=== PATIENT | female | born 1995 | race Caucasian/White ===

== ENCOUNTER 2017-10-13 19:37 | Emergency (ER) | payer MEDICAID ==
[~2017-10-13] VITALS: Ht 157.5 cm; Wt 61.0 kg
[2017-10-13 20:32] LABS: MICROSCOPIC AUTO
[2017-10-13 20:33] LABS: CULTURE INDICATED? YES
[2017-10-13 20:35] LABS: BASOPHILS # (AUTO) 0.03 x10^3/uL (0-0.3); BASOPHILS % (AUTO) 0 % (0-1); EOSINOPHILS # (AUTO) 0.12 x10^3/uL (0-0.8); EOSINOPHILS % (AUTO) 1 % (1-7); LYMPHOCYTES # (AUTO) 1.99 x10^3/uL (1-6.1); LYMPHOCYTES % (AUTO) 19 % (22-44); MD NO; MEAN CORPUSCULAR HEMOGLOBIN 34.7 pg (27.0-34.8); MEAN CORPUSCULAR HGB CONC 34.2 g/dL (32.4-35.8); MEAN CORPUSCULAR VOLUME 101.4 fL (80-100); MEAN PLATELET VOLUME 8.3 fL (7.4-10.4); MONOCYTES # (AUTO) 0.55 x10^3/uL (0-1.4); MONOCYTES % (AUTO) 5 % (2-9); NEUTROPHILS # (AUTO) 7.58 x10^3/uL (1.8-8.0); NEUTROPHILS % (AUTO) 74 % (42-75); PLATELET COUNT 343 x10^3/uL (130-400); RED BLOOD COUNT 3.65 x10^6/uL (3.82-5.3); RED CELL DISTRIBUTION WIDTH 12.5 % (9.6-15.2)
[2017-10-13 20:46] LABS: ALANINE AMINOTRANSFERASE 27 U/L (12-78); ALBUMIN 3.5 g/dL (3.4-5.0); ANION GAP 7 mmol/L (5-15); CALCIUM 8.6 mg/dL (8.5-10.1); CHLORIDE 109 mmol/L (98-107); CREATININE 0.77 mg/dL (0.55-1.02)
[2017-10-13 21:03] LABS: ALKALINE PHOSPHATASE 55 U/L (45-117); BILIRUBIN,TOTAL 0.3 mg/dL (0.2-1.0); TOTAL PROTEIN 7.8 g/dL (6.4-8.2)
[2017-10-13] MEDS ORDERED: NITROFURANTOIN (MACROBID) 100 MG CAPSULE PO ONE (21:30)
[2017-10-13] MEDS ORDERED: NITROFURANTOIN (MACROBID) 100 MG CAPSULE ONE (21:33)
[2017-10-13 22:50] VITALS: BP 114/71
== END 2017-10-13 23:30 | disposition home or self-care (01) ==
LOC: ED 23:24
DX: O23.40 Unspecified infection of urinary tract in pregnancy, unspecified trimester (principal); Z87.891 Personal history of nicotine dependence
CPT/HCPCS: 36415; 76815; 80053; 81001; 84702; 85025; 87086; 99285

== ENCOUNTER 2018-02-06 18:49 | Emergency (ER) | payer MEDICAID ==
[~2018-02-06] VITALS: Ht 154.9 cm; Wt 68.0 kg
[2018-02-06 18:59] VITALS: BP 106/62
[2018-02-06 19:32] LABS: BASOPHILS # (AUTO) 0.03 x10^3/uL (0-0.1); BASOPHILS % (AUTO) 0 % (0-1); EOSINOPHILS # (AUTO) 0.09 x10^3/uL (0-0.4); EOSINOPHILS % (AUTO) 1 % (1-7); LYMPHOCYTES # (AUTO) 2.13 x10^3/uL (1-3.4); LYMPHOCYTES % (AUTO) 17 % (22-44); MD NO; MEAN CORPUSCULAR HEMOGLOBIN 34.1 pg (27.0-34.8); MEAN CORPUSCULAR HGB CONC 33.5 g/dL (32.4-35.8); MEAN PLATELET VOLUME 8.2 fL (7.4-10.4); MONOCYTES # (AUTO) 0.58 x10^3/uL (0.2-0.8); MONOCYTES % (AUTO) 5 % (2-9); NEUTROPHILS # (AUTO) 10.01 x10^3/uL (1.8-6.8); NEUTROPHILS % (AUTO) 78 % (42-75); PLATELET COUNT 374 x10^3/uL (130-400); RED BLOOD COUNT 3.55 x10^6/uL (3.82-5.3); RED CELL DISTRIBUTION WIDTH 12.8 % (9.6-15.2)
[2018-02-06 19:43] LABS: ALANINE AMINOTRANSFERASE 62 U/L (12-78); ANION GAP 7 mmol/L (5-15); CALCIUM 8.5 mg/dL (8.5-10.1); CHLORIDE 107 mmol/L (98-107)
[2018-02-06 19:45] LABS: ALKALINE PHOSPHATASE 67 U/L (45-117); BILIRUBIN,TOTAL 0.2 mg/dL (0.2-1.0); TOTAL PROTEIN 7.5 g/dL (6.4-8.2)
[2018-02-06 19:53] LABS: MICROSCOPIC AUTO
[2018-02-06 19:54] LABS: CULTURE INDICATED? YES
== END 2018-02-06 21:48 | disposition home or self-care (01) ==
LOC: ED 21:22
DX: O23.12 Infections of bladder in pregnancy, second trimester (principal); Z3A.26 26 weeks gestation of pregnancy
CPT/HCPCS: 36415; 76815; 80053; 81001; 85025; 87086; 99284

== ENCOUNTER 2018-05-24 19:36 | Outpatient (CLI) | payer MEDICAID ==
[~2018-05-24] VITALS: Ht 154.9 cm; Wt 68.0 kg
[2018-05-24 20:38] VITALS: BP 115/75
[2018-05-24 20:44] LABS: AMPHETAMINE SCREEN, URINE Negative (Negative); BARBITURATE SCREEN, URINE Negative (Negative); BENZODIAZEPINE SCREEN, URINE Negative (Negative); CANNABINOID SCREEN, URINE Negative (Negative); METHADONE SCREEN, URINE Negative (Negative); OPIATE SCREEN, URINE Negative (Negative)
[2018-05-24 20:46] LABS: COCAINE SCREEN, URINE Negative (Negative)
[2018-05-24 20:52] LABS: MEAN CORPUSCULAR HEMOGLOBIN 34.7 pg (27.0-34.8); MEAN CORPUSCULAR VOLUME 102.3 fL (80-100); MEAN PLATELET VOLUME 8.5 fL (7.4-10.4); PLATELET COUNT 337 x10^3/uL (130-400); RED BLOOD COUNT 3.73 x10^6/uL (3.82-5.3); RED CELL DISTRIBUTION WIDTH 13.4 % (9.6-15.2)
[2018-05-24 21:01] LABS: MICROSCOPIC INDICATED
[2018-05-25] MEDS ORDERED: VALA500T4 PO (21:26)
[2018-05-28] MEDS ORDERED: IBUP-1222 PO (14:08)
[2018-05-28] MEDS ORDERED: LEVE500T53 PO (14:10)
== END 2018-05-24 21:14 | disposition home or self-care (01) ==
LOC: LDOP 19:36
PROVIDERS: ATTEND Obstetrics & Gynecology
DX: O26.893 Other specified pregnancy related conditions, third trimester (principal); Z3A.38 38 weeks gestation of pregnancy
CPT/HCPCS: 36415; 59025; 80307; 81001; 85027; 86592; 86762; 86850; 86900; 87081; 87340; 87806; 99201; G0463; G0475

== ENCOUNTER 2018-05-25 18:14 | Outpatient (CLI) | payer MEDICAID ==
[2018-05-25 20:43] LABS: MICROSCOPIC INDICATED
[2018-05-25 20:50] LABS: AMPHETAMINE SCREEN, URINE Negative (Negative); BARBITURATE SCREEN, URINE Negative (Negative); BENZODIAZEPINE SCREEN, URINE Negative (Negative); CANNABINOID SCREEN, URINE Negative (Negative); COCAINE SCREEN, URINE Negative (Negative); METHADONE SCREEN, URINE Negative (Negative); OPIATE SCREEN, URINE Negative (Negative)
[2018-05-25 20:52] LABS: CULTURE INDICATED? NO
[2018-05-25] MEDS ORDERED: VALA500T4 PO (21:26)
[2018-05-28] MEDS ORDERED: IBUP-1222 PO (14:08)
[2018-05-28] MEDS ORDERED: LEVE500T53 PO (14:10)
== END 2018-05-25 21:46 | disposition home or self-care (01) ==
LOC: LDOP 18:14
PROVIDERS: ATTEND Obstetrics & Gynecology Gynecology
DX: O26.893 Other specified pregnancy related conditions, third trimester (principal); O98.313 Other infections with a predominantly sexual mode of transmission complicating pregnancy, third trimester; O09.33 Supervision of pregnancy with insufficient antenatal care, third trimester; O14.93 Unspecified pre-eclampsia, third trimester; G40.909 Epilepsy, unspecified, not intractable, without status epilepticus; E86.9 Volume depletion, unspecified; N93.9 Abnormal uterine and vaginal bleeding, unspecified; Z3A.34 34 weeks gestation of pregnancy
CPT/HCPCS: 59025; 76805; 80307; 81001; 89060; 99211; G0463; Q0114

== ENCOUNTER 2019-05-31 10:23 | Emergency (ER) | payer SELFPAY ==
[~2019-05-31] VITALS: Ht 157.5 cm; Wt 52.0 kg
[~2019-05-31 10:23] MED LIST: IBUP-1222 PO; LEVE500T53 PO; VALA500T4 PO
[2019-05-31 10:51] LABS: MEAN CORPUSCULAR HEMOGLOBIN 33.5 pg (27.0-34.8); MEAN CORPUSCULAR HGB CONC 33.4 g/dL (32.4-35.8); MEAN CORPUSCULAR VOLUME 100.4 fL (80-100); MEAN PLATELET VOLUME 8.5 fL (7.4-10.4); PLATELET COUNT 369 x10^3/uL (130-400); RED CELL DISTRIBUTION WIDTH 12.2 % (9.6-15.2)
[2019-05-31] MEDS ORDERED: ONDANSETRON ODT 4 MG PO ONE (11:00)
[2019-05-31] MEDS ORDERED: ACETAMINOPHEN 500 MG TABLET PO ONE (11:00)
[2019-05-31 11:05] LABS: ALBUMIN 3.4 g/dL (3.4-5.0); ANION GAP 6 mmol/L (5-15); CALCIUM 8.5 mg/dL (8.5-10.1); CHLORIDE 105 mmol/L (98-107); CREATININE 0.71 mg/dL (0.55-1.02); MD YES
[2019-05-31 11:06] LABS: LYMPH#(MANUAL) 0.76 x10^3/uL (1-3.4); LYMPHS% (MANUAL) 3 % (22-44); MONOS% (MANUAL) 2 % (2-9); SEG#(MANUAL) 23.94 x10^3/uL (1.8-6.8); SEGS% (MANUAL) 95 % (42-75)
[2019-05-31 11:07] LABS: <PLATELET ESTIMATE> ADEQUATE; <PLT MORPHOLOGY> NORMAL PLT MORPH
[2019-05-31] MEDS ORDERED: ACETAMINOPHEN 500 MG TABLET ONE (13:48)
[2019-05-31] MEDS ORDERED: ONDANSETRON ODT 4 MG ONE (13:48)
--- NOTE | 2019-05-31 13:56 | NUR ---
PT MEDICATED PER EMAR.
[2019-05-31 13:59] LABS: MICROSCOPIC AUTO
[2019-05-31 14:10] LABS: CULTURE INDICATED? YES
--- NOTE | 2019-05-31 14:37 | NUR ---
REPORT RECEIVED FROM ALAN NIETO. ASSUMED CARE OF PT. PT CURRENTLY RESTING ON GURNEY, DOZING ON SIDE. AWAKENS EASILY TO NAME BEING CALLED. PT AWARE WE ARE WAITING FOR IMAGING. PT ON CONT BP, CARDIAC AND O2 MONITORS. CALL LIGHT WITHIN REACH. WILL CONT TO MONITOR PT.
[2019-05-31 16:13] VITALS: BP 104/52
== END 2019-05-31 16:15 | disposition home or self-care (01) ==
LOC: ED 11:23
DX: O99.511 Diseases of the respiratory system complicating pregnancy, first trimester (principal); J02.0 Streptococcal pharyngitis; Z3A.01 Less than 8 weeks gestation of pregnancy
CPT/HCPCS: 36415; 76815; 80048; 81001; 82040; 84702; 84703; 85025; 87086; 87880; 99284; Q0162

== ENCOUNTER 2019-06-03 04:57 | Emergency (ER) | payer SELFPAY ==
[~2019-06-03] VITALS: Ht 154.9 cm; Wt 67.4 kg
[2019-06-03] MEDS ORDERED: ONDANSETRON ODT 4 MG ONE (05:47)
[2019-06-03] MEDS ORDERED: ACETAMINOPHEN 325 MG TABLET ONE (05:47)
[2019-06-03] MEDS ORDERED: ACETAMINOPHEN 325 MG TABLET PO ONE (06:00)
[2019-06-03] MEDS ORDERED: ONDANSETRON ODT 4 MG PO ONE (06:00)
--- NOTE | 2019-06-03 06:18 | NUR ---
Patient into room with urine sample. Patient reports having a sore throat but was unable to afford medications. Midlevel provider to bedside for assessment. Orders placed for analgesic and antinausea medications. RN returned with medications as provider assessed patient. RN collected urine sample and tubed to lab. RN provided patient with additional blanket and patient asked RN to dim the lights. Lights were dimmed. Patient then used the bathroom and returned. On return patient was provided with additional blankets. Still waiting for urinalysis and phlebotomy results.
[2019-06-03 06:22] LABS: CULTURE INDICATED? YES; MICROSCOPIC INDICATED
[2019-06-03 06:24] LABS: BASOPHILS # (AUTO) 0.02 x10^3/uL (0-0.1); BASOPHILS % (AUTO) 0 % (0-1); EOSINOPHILS # (AUTO) 0.12 x10^3/uL (0-0.4); EOSINOPHILS % (AUTO) 1 % (1-7); LYMPHOCYTES # (AUTO) 1.58 x10^3/uL (1-3.4); LYMPHOCYTES % (AUTO) 18 % (22-44); MD NO; MEAN CORPUSCULAR HEMOGLOBIN 33.2 pg (27.0-34.8); MEAN CORPUSCULAR HGB CONC 32.9 g/dL (32.4-35.8); MEAN CORPUSCULAR VOLUME 100.8 fL (80-100); MEAN PLATELET VOLUME 8.5 fL (7.4-10.4); MONOCYTES # (AUTO) 0.64 x10^3/uL (0.2-0.8); MONOCYTES % (AUTO) 7 % (2-9); NEUTROPHILS # (AUTO) 6.41 x10^3/uL (1.8-6.8); NEUTROPHILS % (AUTO) 73 % (42-75); PLATELET COUNT 346 x10^3/uL (130-400); RED BLOOD COUNT 3.47 x10^6/uL (3.82-5.3); RED CELL DISTRIBUTION WIDTH 11.9 % (9.6-15.2)
[2019-06-03 06:25] LABS: ALANINE AMINOTRANSFERASE 25 U/L (12-78); ALBUMIN 2.7 g/dL (3.4-5.0); ANION GAP 7 mmol/L (5-15); CALCIUM 8.3 mg/dL (8.5-10.1); CHLORIDE 108 mmol/L (98-107); CREATININE 0.58 mg/dL (0.55-1.02)
[2019-06-03 06:43] LABS: ALKALINE PHOSPHATASE 66 U/L (45-117); BILIRUBIN,TOTAL 0.3 mg/dL (0.2-1.0); TOTAL PROTEIN 7.1 g/dL (6.4-8.2)
[2019-06-03 08:03] VITALS: BP 94/61
== END 2019-06-03 08:05 | disposition home or self-care (01) ==
LOC: ED 05:35
DX: N30.00 Acute cystitis without hematuria (principal); J02.0 Streptococcal pharyngitis
CPT/HCPCS: 36415; 80053; 81001; 83690; 84702; 85025; 87086; 99283; Q0162

== ENCOUNTER 2019-10-21 12:32 | Outpatient (CLI) | payer MEDICAID ==
[~2019-10-21] VITALS: Ht 157.5 cm; Wt 54.5 kg
[2019-10-21 12:52] VITALS: BP 93/60
[2019-10-21 13:49] LABS: BASOPHILS # (AUTO) 0.02 x10^3/uL (0-0.1); BASOPHILS % (AUTO) 0 % (0-1); EOSINOPHILS # (AUTO) 0.14 x10^3/uL (0-0.4); EOSINOPHILS % (AUTO) 1 % (1-7); LYMPHOCYTES # (AUTO) 2.41 x10^3/uL (1-3.4); LYMPHOCYTES % (AUTO) 24 % (22-44); MD NO; MEAN CORPUSCULAR HEMOGLOBIN 33.6 pg (27.0-34.8); MEAN CORPUSCULAR HGB CONC 33.1 g/dL (32.4-35.8); MEAN CORPUSCULAR VOLUME 101.5 fL (80-100); MEAN PLATELET VOLUME 7.7 fL (7.4-10.4); MONOCYTES # (AUTO) 0.46 x10^3/uL (0.2-0.8); MONOCYTES % (AUTO) 5 % (2-9); NEUTROPHILS # (AUTO) 6.84 x10^3/uL (1.8-6.8); NEUTROPHILS % (AUTO) 69 % (42-75); PLATELET COUNT 385 x10^3/uL (130-400); RED BLOOD COUNT 3.42 x10^6/uL (3.82-5.3); RED CELL DISTRIBUTION WIDTH 14.1 % (9.6-15.2)
[2019-10-21 14:18] LABS: AMPHETAMINE SCREEN, URINE Negative (Negative); BENZODIAZEPINE SCREEN, URINE Negative (Negative); CANNABINOID SCREEN, URINE Negative (Negative); COCAINE SCREEN, URINE Negative (Negative); OPIATE SCREEN, URINE Negative (Negative)
[2019-10-21] MEDS ORDERED: VALACYCLOVIR 500MG TABLET ONE (14:28)
[2019-10-21 14:31] LABS: CLUE CELLS PRESENT (NONE SEEN); WET PREP WBCS MODERATE (FEW)
[2019-10-21 14:35] LABS: MICROSCOPIC NOT IND
[2019-10-21 14:36] LABS: BARBITURATE SCREEN, URINE Negative (Negative); METHADONE SCREEN, URINE Negative (Negative)
[2019-10-21] MEDS ORDERED: metroNIDAZOLE 500 MG TABLET PO ONE (17:30)
[2019-10-21] MEDS ORDERED: VALACYCLOVIR 500MG TABLET PO SCH (21:00)
== END 2019-10-21 18:47 | disposition home or self-care (01) ==
LOC: LDOP 12:32
PROVIDERS: ATTEND Obstetrics & Gynecology
DX: O32.1XX0 Maternal care for breech presentation, not applicable or unspecified (principal); O42.912 Preterm premature rupture of membranes, unspecified as to length of time between rupture and onset of labor, second trimester; O26.892 Other specified pregnancy related conditions, second trimester; N76.0 Acute vaginitis; Z3A.25 25 weeks gestation of pregnancy
CPT/HCPCS: 36415; 76805; 80307; 81003; 84112; 85025; 86592; 86762; 86850; 86900; 87081; 87210; 87340; 87491; 87591; 87806; 87808; 99201; 99211; G0463; G0475

== ENCOUNTER 2019-11-04 19:46 | Outpatient (CLI) | payer MEDICAID ==
[~2019-11-04] VITALS: Ht 157.5 cm; Wt 72.8 kg
[2019-11-04 19:58] VITALS: BP 99/54
[2019-11-04 20:53] LABS: AMPHETAMINE SCREEN, URINE Negative (Negative); BARBITURATE SCREEN, URINE Negative (Negative); BENZODIAZEPINE SCREEN, URINE Negative (Negative); CANNABINOID SCREEN, URINE Negative (Negative); COCAINE SCREEN, URINE Negative (Negative); METHADONE SCREEN, URINE Negative (Negative); OPIATE SCREEN, URINE Negative (Negative)
== END 2019-11-04 20:55 | disposition home or self-care (01) ==
LOC: LDOP 19:46
PROVIDERS: ATTEND Obstetrics & Gynecology
DX: O26.893 Other specified pregnancy related conditions, third trimester (principal); R10.9 Unspecified abdominal pain; Z3A.28 28 weeks gestation of pregnancy
CPT/HCPCS: 80307; 99211; G0463

== ENCOUNTER 2020-11-02 13:47 | Emergency (ER) | payer MEDICAID ==
[~2020-11-02] VITALS: Ht 157.5 cm; Wt 60.9 kg
--- NOTE | 2020-11-02 14:36 | NUR ---
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
[2020-11-02 14:48] LABS: MICROSCOPIC INDICATED
[2020-11-02 14:54] LABS: BASOPHILS % (AUTO) 0 % (0-1); EOSINOPHILS % (AUTO) 0 % (1-7); LYMPHOCYTES % (AUTO) 5 % (22-44); MEAN CORPUSCULAR HEMOGLOBIN 31.1 pg (27.0-34.8); MEAN CORPUSCULAR HGB CONC 33.6 g/dL (32.4-35.8); MEAN PLATELET VOLUME 8.8 fL (7.4-10.4); MONOCYTES % (AUTO) 3 % (2-9); NEUTROPHILS % (AUTO) 91 % (42-75); PLATELET COUNT 362 x10^3/uL (130-400); RED CELL DISTRIBUTION WIDTH 16.2 % (9.6-15.2)
[2020-11-02 15:14] LABS: ALANINE AMINOTRANSFERASE 23 U/L (12-78); ALBUMIN 3.5 g/dL (3.4-5.0); ANION GAP 4 mmol/L (5-15); CALCIUM 8.9 mg/dL (8.5-10.1); CHLORIDE 113 mmol/L (98-107); CREATININE 0.57 mg/dL (0.55-1.02)
[2020-11-02 15:18] LABS: ALKALINE PHOSPHATASE 74 U/L (45-117); BILIRUBIN,TOTAL 0.7 mg/dL (0.2-1.0); TOTAL PROTEIN 8.5 g/dL (6.4-8.2)
--- NOTE | 2020-11-02 17:39 | NUR ---
PT AMBULATORY TO ROOM AT THIS TIME.
[2020-11-02] MEDS ORDERED: ONDANSETRON ODT 4 MG PO ONE (18:30)
--- NOTE | 2020-11-02 18:40 | NUR ---
PT PLACED ON VITALS MONITORS. PT IN HOSPITAL GOWN. AWAITING ORDERS.
[2020-11-02] MEDS ORDERED: ONDANSETRON ODT 4 MG ONE (18:52)
--- NOTE | 2020-11-02 19:40 | NUR ---
PT MEDICATED PER EMAR, PROVIDED WITH CRACKERS AND JUICE PER REQUEST. PT HANDLED WELL. NO VOMITING. STATES FEELING A LITTLE BETTER. ERP UPDATED
[2020-11-02 20:25] VITALS: BP 98/57
== END 2020-11-02 21:01 | disposition home or self-care (01) ==
LOC: ED 15:00
DX: A08.4 Viral intestinal infection, unspecified (principal); E86.0 Dehydration; R11.2 Nausea with vomiting, unspecified
CPT/HCPCS: 36415; 80053; 81001; 84703; 85025; 87077; 87086; 99283; Q0162